=== PATIENT | female | born 1995 | race Caucasian/White ===

== ENCOUNTER 2017-02-06 15:59 | Emergency (ER) | payer SELFPAY ==
[2017-02-06 16:12] VITALS: TEMP 97.7
[2017-02-06] MEDS ORDERED: OXYCODONE/APAP 5/325 TAB PO ONE (17:12)
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
[2017-02-06] MEDS ORDERED: OXYCODONE/APAP 5/325MG PREPACK#4 BTL TAKEHOME ONE (18:20)
[2017-02-06 18:46] VITALS: BP 109/72; PULSE 67; RESP 16; O2SAT 97
== END 2017-02-06 18:46 | disposition home or self-care (01) ==
PROC: 0HQ0XZZ Repair Scalp Skin, External Approach (ICD-10-PCS; principal; 2017-02-06)
DX: S01.01XA Laceration without foreign body of scalp, initial encounter (principal); W22.8XXA Striking against or struck by other objects, initial encounter; Y99.8 Other external cause status; Y93.16 Activity, rowing, canoeing, kayaking, rafting and tubing